=== PATIENT | female | born 1955 | race Caucasian/White ===

== ENCOUNTER 2019-05-14 11:45 | Day surgery (SDC) | payer MEDICARE, OTHER ==
[2019-05-14] MEDS ORDERED: Depo-Medrol 40 MG/ML IM ONE (11:46)
[2019-05-14] MEDS ORDERED: Sodium Chloride 0.9(Preservative Free) 10 ML IJ ONE (11:46)
[2019-05-14] MEDS ORDERED: Lactated Ringers 1,000 ML IV ONE (13:11)
--- NOTE | 2019-05-14 13:34 | XRAY ---
Indication: Left L3-L5 transforaminal KRISTEN. Intraoperative fluoroscopy was provided for 14 seconds. 2 digital spot images submitted for interpretation demonstrates posterior needle tips projecting over the expected course of the left L3 and L4 nerve roots. Small amount of contrast injected for needle tip placement. Correlate with intraoperative findings/report.
== END 2019-05-14 13:05 | disposition home or self-care (01) ==
LOC: SDC-PAIN 11:45
PROVIDERS: ATTEND Psychiatry & Neurology Pain Medicine
DX: M54.16 Radiculopathy, lumbar region (principal); K21.9 Gastro-esophageal reflux disease without esophagitis; F41.8 Other specified anxiety disorders; I34.1 Nonrheumatic mitral (valve) prolapse; Z79.899 Other long term (current) drug therapy
CPT/HCPCS: 64483; 64484; 72100; 77003; J1030; Q9966

== ENCOUNTER 2022-02-10 05:55 | Day surgery (SDC) | payer MEDICARE, OTHER ==
[2022-02-10] MEDS ORDERED: Lactated Ringers 1,000 ML IV SCH (06:30)
[2022-02-10] MEDS ORDERED: DIPRIVAN 200 MG/20 ML IV ONE (08:10)
[2022-02-10] MEDS ORDERED: ROBINUL ONE (08:10)
[2022-02-10] MEDS ORDERED: Xylocaine-Mpf 2% 5 Ml Vial ONE (08:10)
[2022-02-10 09:02] VITALS: O2SAT 99
[2022-02-10 09:22] VITALS: BP 156/88; PULSE 52
--- NOTE | 2022-02-10 09:28 | OP ---
SURGERY DATE/TIME: 02/10/2022 0800 PREOPERATIVE DIAGNOSIS: History of colon polyps. POSTOPERATIVE DIAGNOSIS: Mild sigmoid diverticulosis otherwise normal colon. PROCEDURE: Colonoscopy. SURGEON: Dr. Sheldon Li. ANESTHESIA: MAC. Medications given by anesthesia department. HISTORY: The patient is a 66-year-old white female presenting now for colonoscopic evaluation. She reports on the most recent colonoscopy she had polyps removed. The patient was felt the need to have endoscopic evaluation. She was appraised of the risks of the procedure including the risk of perforation, phlebitis, untoward reaction to medication, bleeding and missed lesions. The patient verbalized her understanding and desired to have the procedure performed. DESCRIPTION OF PROCEDURE: The patient was given the medications by the anesthesia department. She had continuous pulse oximetry, ECG monitoring, intermittent blood pressure monitoring during the examination. She was placed in the left lateral decubitus position. A digital rectal examination was performed and revealed normal anal sphincter tone and no masses. The flexible Olympus pediatric colonoscope was used to intubate the rectum. A view of the colon was developed sequentially to the cecum. Upon insertion and withdrawal, including a retroflex view in the rectum was noted to be some mild sigmoid diverticulosis otherwise no mucosal lesions were encountered. The scope was removed from the patient who tolerated the procedure well and was sent back to outpatient recovery in good condition. The prep was noted to be fair with dark liquid stool noted through most of the colon but suctioned clear in the majority areas to be able to evaluate the colonic mucosa.
== END 2022-02-10 09:20 | disposition home or self-care (01) ==
LOC: SDC 05:55
PROVIDERS: ATTEND Family Medicine
DX: Z09 Encounter for follow-up examination after completed treatment for conditions other than malignant neoplasm (principal); Z86.010 Personal history of colon polyps; K57.30 Diverticulosis of large intestine without perforation or abscess without bleeding
CPT/HCPCS: J2704

== ENCOUNTER 2024-05-05 05:53 | Day surgery (SDC) | payer MEDICARE, OTHER ==
[2024-05-05] MEDS: CEFAZOLIN 2 GM/100 ML NaCl 2 GM/100 ML IVPB IV SCH (06:57)
[2024-05-05] MEDS: Lactated Ringers 1,000 ML IV SCH (06:57)
[2024-05-05] MEDS: TYLENOL EXTRA STRENGTH 500 MG PO ONE (06:58)
[2024-05-05] MEDS: NEURONTIN PO ONE (06:58)
[2024-05-05] MEDS: Decadron 4 MG PO ONE (06:58)
[2024-05-05] MEDS: celeBREX 100 MG PO ONE (06:58)
[2024-05-05 07:22] VITALS: RESP 18
[2024-05-05] MEDS ORDERED: Epinephrine Preservative Free 1 MG/ML ONE ×2 (08:10→08:20)
[2024-05-05] MEDS ORDERED: Zofran 4 MG/2 ML VIAL ONE (08:19)
[2024-05-05] MEDS ORDERED: dexAMETHasone sodium phosphate ONE (08:19)
[2024-05-05] MEDS ORDERED: Naropin 0.5% 30 ML VIAL ONE (08:19)
[2024-05-05] MEDS ORDERED: propofoL IV ONE (08:19)
[2024-05-05] MEDS ORDERED: Versed 2 MG/2 ML Injection ONE (08:35)
[2024-05-05 11:48] VITALS: O2SAT 95
[2024-05-05 11:59] VITALS: BP 161/76; PULSE 56; TEMP 98.8
--- NOTE | 2024-05-06 17:37 | OP ---
SURGERY DATE/TIME: 05/05/2024 [id number] PREOPERATIVE DIAGNOSES: Torn right rotator cuff with impingement syndrome, acromioclavicular osteoarthritis, and split tear of biceps tendon. POSTOPERATIVE DIAGNOSES: Torn right rotator cuff with impingement syndrome, acromioclavicular osteoarthritis, split tear of biceps tendon, and degenerative tearing of glenoid labrum. PROCEDURES: Arthroscopy of the right shoulder with rotator cuff repair, subacromial decompression, William procedure, biceps tenotomy, and incidental debridement of the labrum. SURGEON: Bhaskar Oseguera II, DO. ANESTHESIA: General with a block for postop pain control. DESCRIPTION OF PROCEDURE AND FINDINGS: The patient was identified and informed consent was obtained. The patient was taken to the operative suite and placed in a supine position on the operating table where a general anesthetic was administered. It should be noted a block had been placed in the preop holding area prior to taking the patient to the OR. Once an appropriate level of anesthesia had been obtained, the patient was then placed into the left lateral decubitus position with the right side up, axillary roll placed, bony prominences padded, shoulders were rotated back 20 degrees, and the beanbag was then inflated. The right upper extremity was then prepped and draped in the usual sterile fashion and placed into the Star abduction traction device at 40 degrees of lateral opening and approximately 20 degrees of forward flexion and 10 pounds of traction utilized. A standard time-out was taken. Following this, the shoulder was marked for bony landmarks and a standard posterior portal was created with an 11 blade. The tourniquet and cannula were placed into the glenohumeral joint which was distended with the pump. The 18-gauge spinal needle identified the level for the anterior portal and at this point then the glenohumeral joint was inspected in a systematic fashion. Humeral head and glenoid fossa were noted to have some mild degenerative thinning of the cartilage. Some degenerative fraying of the labrum was noted and this was debrided. The infraglenoid pouch had no loose bodies or synovial hypertrophy. The biceps tendon had a partial tear with a split component, and a biceps tenotomy was performed utilizing the SERFAS wand. Following this, the glenohumeral ligaments were inspected and noted to be intact. Patient did have a tear involving the supraspinatus tendon and in the infraspinatus tendon a nice crescent-type tear was noted. This was debrided from the underside and portion of the bony bed, which could be visualized from the articular side, was then prepared. Scope was then placed into the bursal space where bursoscopy was performed. The undersurface of the acromion was denuded of soft tissue and about 2 bur thicknesses of acromion was removed anteriorly, tapering this to a smooth transition posteriorly with the bur. The bur was also utilized to take about 2 to 2-1/2 bur thicknesses of distal clavicle and the bur was also utilized to remove the trumpeting of the undersurface of the distal clavicle. At this point, the rotator cuff was noted to be quite mobile and could be placed back over onto its anatomic footprint and bed. At this point, the edges were debrided. Utilizing a 4.7 mm SwiveLock SpeedBridge configuration, the 2 medial anchors were placed and the FiberTapes were brought through the cuff. The lateral anchors were placed and the rotator cuff was repaired giving a nice tight water seal of the rotator cuff. At this point, shoulder was reinspected. No further pathology identified. The instrumentation was removed and the portal sites were closed with interrupted 4-0 nylon suture. Adaptic, 4 x 4's, and a standard postop arthroscopy dressing applied. Patient was placed into an UltraSling, transferred to the cart, and taken to the recovery room in satisfactory condition, having tolerated the procedure well.
== END 2024-05-05 12:06 | disposition home or self-care (01) ==
LOC: SDC 05:53
PROVIDERS: ATTEND Orthopaedic Surgery
DX: M75.111 Incomplete rotator cuff tear or rupture of right shoulder, not specified as traumatic (principal); M25.511 Pain in right shoulder; M75.41 Impingement syndrome of right shoulder; M19.011 Primary osteoarthritis, right shoulder; S46.211A Strain of muscle, fascia and tendon of other parts of biceps, right arm, initial encounter
CPT/HCPCS: 23405; 29824; 29826; 29827; J0171; J0690; J1100; J2250; J2405; J2704; J2795; A9270-GY